=== PATIENT | female | born 1955 | race Caucasian/White ===

== ENCOUNTER 2019-04-30 16:39 | Emergency (ER) | payer MEDICAID, OTHER ==
[~2019-04-30] VITALS: Ht 162.6 cm; Wt 72.2 kg
[2019-04-30 16:49] VITALS: BP 149/71
[2019-04-30] MEDS ORDERED: NACL 0.9% 1,000 ML IV ONE (17:30)
[2019-04-30 17:44] LABS: BASOPHILS % (AUTO) 0.7 % (0.0-2.0); EOSINOPHILS # (AUTO) 0.1 K/uL (0-0.4); EOSINOPHILS % (AUTO) 0.9 % (0.0-4.0); HEMATOCRIT 27.7 % (36-48); HEMOGLOBIN 9.5 g/dL (12.0-16.0); LYMPHOCYTES # (AUTO) 1.3 K/uL (2.5-16.5); LYMPHOCYTES % (AUTO) 18.1 % (20.5-51.1); MEAN CORPUSCULAR HEMOGLOBIN 32 pg (27-31); MEAN CORPUSCULAR HGB CONC 34 g/dL (33-37); MEAN CORPUSCULAR VOLUME 91.4 fL (80-94); MONOCYTES # (AUTO) 0.5 K/uL (0.8-1.0); MONOCYTES % (AUTO) 7.8 % (1.7-9.3); NEUTROPHILS % (AUTO) 72.5 % (42.2-75.2); PLATELET COUNT (AUTO) 289 K/uL (140-450); RED BLOOD CELL COUNT(AUTO) 3.03 MIL/uL (4.20-5.40); RED CELL DISTRIBUTION WIDTH 13.5 % (11.6-13.7)
[2019-04-30 19:07] LABS: ALBUMIN 3.6 g/dL (3.4-5.0); ANION GAP 14.7 (8-16); CREATININE 1.6 mg/dL (0.6-1.3); POTASSIUM 4.7 mmol/L (3.5-5.1); TOTAL BILIRUBIN 0.5 mg/dL (0.0-1.0)
[2019-04-30 23:15] VITALS: BP 134/86
== END 2019-04-30 23:14 | disposition home or self-care (01) ==
LOC: MED 16:39
DX: R10.32 Left lower quadrant pain (principal); R19.7 Diarrhea, unspecified; M54.5 Low back pain; E11.9 Type 2 diabetes mellitus without complications; I10 Essential (primary) hypertension
CPT/HCPCS: 36415; 71045; 74176; 80053; 81002; 84484; 85025; 93005; 96360; 96361; 99284; J7030